=== PATIENT | male | born 1990 | race Two or more races ===

== ENCOUNTER 2022-06-22 14:42 | Emergency (ER) | payer MEDICAID, MEDICARE, OTHER ==
[~2022-06-22] VITALS: Ht 175.3 cm; Wt 109.0 kg
[2022-06-22 15:08] VITALS: BP 138/95
[2022-06-22] MEDS ORDERED: LORazepam 0.5 MG TAB PO ONE (15:30)
== END 2022-06-22 16:39 | disposition left against medical advice (07) ==
LOC: ER 14:42
DX: R07.89 Other chest pain (principal); F17.210 Nicotine dependence, cigarettes, uncomplicated; J45.909 Unspecified asthma, uncomplicated; I10 Essential (primary) hypertension
CPT/HCPCS: 93005